=== PATIENT | male | born 1965 | race Caucasian/White ===

== ENCOUNTER 2016-09-05 10:02 | Day surgery (SDC) | payer BC ==
[~2016-09-05] VITALS: Ht 165.1 cm; Wt 89.0 kg
[~2016-09-05 10:02] MED LIST: ASPIRIN325 MG PO; ATORVASTATIN CA80 MG PO; Aspirin Chewable PO; LEVOTHYROXINE125 MCG PO; Lipitor PO; Lopressor PO; METOPROLOL SUCC25 MG PO; ONE-A-DAY ESSE1 EAC1 PO; Plavix PO; ZESTORETIC 20-1 EAC1 PO; ZETIA10 MG PO; [UNRECOGNIZED DRUG - REMARK]
[2016-09-05 11:05] VITALS: BP 110/76
[2016-09-05] MEDS ORDERED: NORCO 5/3251 TABLET PO (15:51)
[2016-09-05] MEDS ORDERED: MOTRIN600 MG PO (16:13)
[2016-09-05 16:55] VITALS: BP 115/70
[2016-09-05 17:39] VITALS: BP 108/71
== END 2016-09-05 18:00 | disposition home or self-care (01) ==
LOC: SDC 10:02
DX: K43.0 Incisional hernia with obstruction, without gangrene (principal); K66.0 Peritoneal adhesions (postprocedural) (postinfection); Z53.31 Laparoscopic surgical procedure converted to open procedure; I10 Essential (primary) hypertension; I25.10 Atherosclerotic heart disease of native coronary artery without angina pectoris; R07.9 Chest pain, unspecified; Z95.1 Presence of aortocoronary bypass graft; N28.9 Disorder of kidney and ureter, unspecified; F17.200 Nicotine dependence, unspecified, uncomplicated; Z79.82 Long term (current) use of aspirin
CPT/HCPCS: 88300; 93005; C1781; J0131; J0690; J1100; J1170; J1885; J2250; J2405; J2710; J2765; J3010; S0020